=== PATIENT | male | born 1940 | race Caucasian/White ===

== ENCOUNTER 2017-10-12 14:55 | Emergency (ER) | payer MEDICARE, OTHER ==
[~2017-10-12] VITALS: Ht 160 cm; Wt 62.3 kg
[~2017-10-12 14:55] MED LIST: AMLO5TAB4 PO; ASPI-621 PO; CALC0.25 PO; CARV3.122 PO; CARV6.2512 PO; CHOL200074 PO; FOLI400T3 PO; GLUC1CAP48 PO; IRON PO; ROSU40TA PO; SOLI5TAB2 PO; TROS60CA3 PO
[2017-10-12 15:52] VITALS: BP 128/50
[2017-10-12] MEDS ORDERED: SODIUM CHLORIDE FLUSH 10ML SYR IVF ONE (16:00)
[2017-10-12] MEDS ORDERED: ONDANSETRON 2MG/ML, 2ML IVPush ONE (16:00)
[2017-10-12] MEDS ORDERED: SODIUM CHLORIDE 0.9% 1,000ML IVBOLUS ONE (16:00)
[2017-10-12] MEDS ORDERED: MORPHINE SULFATE 4 MG/ML, 1ML IVPush PRN (16:00)
[2017-10-12] MEDS ORDERED: MORPHINE SULFATE 4 MG/ML, 1ML ONE (16:11)
[2017-10-12] MEDS ORDERED: ONDANSETRON 2MG/ML, 2ML ONE (16:11)
[2017-10-12] MEDS ORDERED: KETOROLAC 30 MG/1 ML ONE (16:29)
[2017-10-12] MEDS ORDERED: KETOROLAC 30 MG/1 ML IM ONE (16:30)
[2017-10-12 16:38] LABS: ASPARTATE AMINO TRANSFERASE 16 U/L (15-37); BLOOD UREA NITROGEN 28 mg/dL (7-18)
[2017-10-12 16:49] LABS: DIFF TOTAL CELLS COUNTED 100 CELL DIFF; HEMATOCRIT 31.5 % (39.2-51.8); HEMOGLOBIN 10.5 g/dL (13.7-18.0); WHITE BLOOD COUNT 4.2 x10^3/uL (3.4-10)
[2017-10-12 16:54] LABS: ANISOCYTOSIS 2+; OVALOCYTES 1+; VERIFY COUNTS? YES
[2017-10-12 16:55] LABS: LARGE PLATELETS 1+; MICROCYTOSIS 1+
== END 2017-10-12 17:53 | disposition home or self-care (01) ==
LOC: ED 16:30
DX: M54.6 Pain in thoracic spine (principal); J18.9 Pneumonia, unspecified organism; E78.00 Pure hypercholesterolemia, unspecified; I25.2 Old myocardial infarction; Z90.49 Acquired absence of other specified parts of digestive tract
CPT/HCPCS: 36415; 71010; 73010; 80053; 85025; 96372; 99285; J1885

== ENCOUNTER 2017-12-02 19:30 | Inpatient (IN) | payer MEDICARE, OTHER ==
[~2017-12-02] VITALS: Ht 162.6 cm; Wt 76.6 kg
[2017-12-02] MEDS ORDERED: SODIUM CHLORIDE FLUSH 10ML SYR IVF ONE (20:00)
[2017-12-02] MEDS ORDERED: SODIUM CHLORIDE 0.9% 1,000ML IVBOLUS ONE ×2 (20:00→21:00)
[2017-12-02] MEDS ORDERED: PLEASE ENTER HEIGHT AND WEIGHT MC SCH (20:00)
[2017-12-02 20:38] LABS: RAPID INFLUENZA A Negative (Negative); RAPID INFLUENZA B Negative (Negative)
[2017-12-02 20:39] LABS: INTERNATIONAL NORMALIZED RATIO 1.24 (0.93-1.1); PROTHROMBIN TIME 12.7 Seconds (9.6-11.5)
[2017-12-02 20:41] LABS: ALANINE AMINOTRANSFERASE 75 U/L (12-78); ALBUMIN 2.8 g/dL (3.4-5.0); ANION GAP 15 mmol/L (5-15); CALCIUM 8.2 mg/dL (8.5-10.1); CHLORIDE 107 mmol/L (98-107)
[2017-12-02 20:45] LABS: ALKALINE PHOSPHATASE 141 U/L (45-117); BILIRUBIN,TOTAL 2.7 mg/dL (0.2-1.0)
[2017-12-02 20:48] LABS: MEAN CORPUSCULAR HEMOGLOBIN 31.4 pg (27.5-34.5); MEAN CORPUSCULAR HGB CONC 32.6 g/dL (33.2-36.2); MEAN CORPUSCULAR VOLUME 96.4 fL (81-97); RED BLOOD COUNT 2.44 x10^6/uL (4.38-5.82); RED CELL DISTRIBUTION WIDTH 21.4 % (9.4-14.8)
[2017-12-02] MEDS ORDERED: FUROSEMIDE 40 MG/4 ML IV ONE (21:00)
[2017-12-02] MEDS ORDERED: ASPIRIN 81 MG TABLET CHEW PO ONE (21:00)
[2017-12-02] MEDS ORDERED: CEFTRIAXONE PMX 1GM/50ML 50 ML IV ONE (21:00)
[2017-12-02] MEDS ORDERED: FUROSEMIDE 40 MG/4 ML ONE (21:09)
[2017-12-02 21:17] LABS: MD YES
[2017-12-02] MEDS ORDERED: LORazepam 2 MG/ML, 1ML IVPush ONE (21:30)
[2017-12-02] MEDS ORDERED: CEFTRIAXONE PMX 1GM/50ML 50 ML ONE (21:32)
[2017-12-02 21:33] LABS: BAND#(MANUAL) 2.13 x10^3/uL; BANDS%(MANUAL) 14 % (0-7); LYMPH#(MANUAL) 0.76 x10^3/uL (1-3.4); LYMPHS% (MANUAL) 5 % (22-44); MONOS#(MANUAL) 4.71 x10^3/uL (0.3-2.7); MONOS% (MANUAL) 31 % (2-9); SEG#(MANUAL) 6.38 x10^3/uL (1.8-6.8); SEGS% (MANUAL) 42 % (42-75)
[2017-12-02] MEDS ORDERED: LORazepam 2 MG/ML, 1ML ONE (21:33)
[2017-12-02] MEDS ORDERED: ASPIRIN 81 MG TABLET CHEW ONE (21:33)
[2017-12-02 21:35] LABS: OTHER CELLS # (MANUAL) 1.22 x10^3/uL (0-0); OTHER CELLS % (MANUAL) 8 % (0-0)
[2017-12-02 21:36] LABS: ANISOCYTOSIS 1+; POLYCHROMASIA 1+
[2017-12-02 21:37] LABS: OVALOCYTES 1+
[2017-12-02 21:38] LABS: PLATELET COUNT 52 x10^3/uL (130-400)
[2017-12-02 21:39] LABS: <PLATELET ESTIMATE> DECREASED; LARGE PLATELETS 1+; MEAN PLATELET VOLUME 10.3 fL (7.4-10.4)
[2017-12-02] MEDS ORDERED: FLUMAZENIL 0.1 MG/1 ML, 5ML ONE (21:53)
[2017-12-02] MEDS ORDERED: PANTOPRAZOLE 80 MG in SODIUM CHLORIDE 0.9% 100 ML IV SCH (21:57)
[2017-12-02] MEDS ORDERED: PANTOPRAZOLE 80 MG in SODIUM CHLORIDE 0.9% 50 ML IVPB ONE (21:57)
[2017-12-02] MEDS ORDERED: FLUMAZENIL 0.1 MG/1 ML, 5ML IVPush ONE (22:00)
[2017-12-02 22:05] LABS: MICROSCOPIC INDICATED
[2017-12-02] MEDS ORDERED: SUCCINYLCHOLINE 20 MG/ML, 10ML ONE (22:06)
[2017-12-02] MEDS ORDERED: CODE BLUE RESPONSE XX ONE (22:06)
[2017-12-02] MEDS ORDERED: ETOMIDATE 20 MG/10 ML ONE (22:06)
[2017-12-02] MEDS ORDERED: VECURONIUM 10 MG ONE (22:06)
[2017-12-02] MEDS ORDERED: PROPOFOL 100 ML IV PRN (22:11)
[2017-12-02 22:23] LABS: CULTURE INDICATED? NO
[2017-12-02] MEDS ORDERED: VECURONIUM 10 MG IVPush ONE (22:30)
[2017-12-02] MEDS ORDERED: ETOMIDATE 20 MG/10 ML IV ONE (22:30)
[2017-12-02] MEDS ORDERED: SUCCINYLCHOLINE 20 MG/ML, 10ML IVPush ONE (22:30)
[2017-12-02 22:31] LABS: CLOSTRIDIUM DIFFICILE ANTIGEN NEGATIVE; CLOSTRIDIUM DIFFICILE TOXIN NEGATIVE (Negative)
[2017-12-02 22:32] LABS: MEAN CORPUSCULAR HEMOGLOBIN 32.1 pg (27.5-34.5); MEAN CORPUSCULAR HGB CONC 32.5 g/dL (33.2-36.2); MEAN CORPUSCULAR VOLUME 98.9 fL (81-97); RED BLOOD COUNT 2.09 x10^6/uL (4.38-5.82); RED CELL DISTRIBUTION WIDTH 22.5 % (9.4-14.8)
[2017-12-02 22:37] LABS: ANION GAP 21 mmol/L (5-15); CALCIUM 7.2 mg/dL (8.5-10.1); CHLORIDE 112 mmol/L (98-107); CREATININE 3.01 mg/dL (0.7-1.3)
[2017-12-02 22:43] LABS: MEAN PLATELET VOLUME 10.3 fL (7.4-10.4); PLATELET COUNT 60 x10^3/uL (130-400)
[2017-12-02 22:44] VITALS: BP 88/43
[2017-12-02 22:49] LABS: MD YES
[2017-12-02 22:56] LABS: BAND#(MANUAL) 3.23 x10^3/uL; BANDS%(MANUAL) 11 % (0-7); LYMPH#(MANUAL) 2.35 x10^3/uL (1-3.4); LYMPHS% (MANUAL) 8 % (22-44); METAMYELOCYTES# (MANUAL) 0.29 x10^3/uL (0-0); METAMYELOCYTES% (MANUAL) 1 % (0-1); MONOS#(MANUAL) 3.53 x10^3/uL (0.3-2.7); MONOS% (MANUAL) 12 % (2-9); MYELOCYTES# (MANUAL) 0.29 x10^3/uL (0-0); MYELOCYTES% (MANUAL) 1 % (0-0); NRBC % (MANUAL) 2 % (0-1); OTHER CELLS # (MANUAL) 3.82 x10^3/uL (0-0); OTHER CELLS % (MANUAL) 13 % (0-0); SEG#(MANUAL) 15.88 x10^3/uL (1.8-6.8); SEGS% (MANUAL) 54 % (42-75)
[2017-12-02 22:57] LABS: ANISOCYTOSIS 1+
[2017-12-02 22:58] LABS: <PLATELET ESTIMATE> DECREASED; HYPOCHROMIA 1+; MICROCYTOSIS 1+; OVALOCYTES 1+; POLYCHROMASIA 1+
[2017-12-02 22:59] LABS: LARGE PLATELETS 1+
[2017-12-02] MEDS ORDERED: FLUO10TA PO (22:59)
[2017-12-02] MEDS ORDERED: BISACODYL 10 MG SUPP PR PRN (23:00)
[2017-12-02] MEDS ORDERED: hydrALAzine 20 MG/ML, 1ML IVPush PRN (23:00)
[2017-12-02] MEDS ORDERED: POLYETHYLENE GLYCOL 17 GM PACKET PO PRN (23:00)
[2017-12-02] MEDS ORDERED: DOCUSATE 100 MG CAPSULE PO PRN (23:00)
[2017-12-02] MEDS ORDERED: ONDANSETRON 2MG/ML, 2ML IVPush PRN (23:00)
[2017-12-02] MEDS ORDERED: OXYcodone IR 5MG TABLET PO PRN (23:00)
[2017-12-02] MEDS ORDERED: morphine SULFATE 10 MG/ML, 1ML IVPush PRN (23:00)
[2017-12-02] MEDS ORDERED: PANTOPRAZOLE 80 MG in SODIUM CHLORIDE 0.9% 50 ML IV ONE (23:00)
[2017-12-02 23:01] VITALS: BP 76/30
[2017-12-02 23:30] LABS: FREE T4 (FREE THYROXINE) 0.91 ng/dL (0.76-1.46)
[2017-12-02 23:50] VITALS: BP 75/30
[2017-12-03] VITALS (17 sets, daily range): BP systolic 70–110; BP diastolic 32–44
[2017-12-03] MEDS ORDERED: PROPOFOL 10 MG/ML, 100ML IV ONE
[2017-12-03] MEDS ORDERED: ETOMIDATE 40 MG/20 ML ONE
[2017-12-03] MEDS: CEFTRIAXONE PMX 1GM/50ML 50 ML IV SCH (03:02)
[2017-12-03] MEDS: AZITHROMYCIN 500 MG in SODIUM CHLORIDE 0.9% 250 ML IV SCH (03:56)
[2017-12-03 04:56] LABS: MEAN CORPUSCULAR HEMOGLOBIN 31.2 pg (27.5-34.5); MEAN CORPUSCULAR HGB CONC 33.6 g/dL (33.2-36.2); MEAN CORPUSCULAR VOLUME 92.6 fL (81-97); PLATELET COUNT 66 x10^3/uL (130-400); RED BLOOD COUNT 3.23 x10^6/uL (4.38-5.82); RED CELL DISTRIBUTION WIDTH 19.4 % (9.4-14.8)
[2017-12-03 04:57] LABS: ALBUMIN 2.1 g/dL (3.4-5.0); ANION GAP 18 mmol/L (5-15); CALCIUM 6.6 mg/dL (8.5-10.1); CHLORIDE 113 mmol/L (98-107)
[2017-12-03 05:05] LABS: ALKALINE PHOSPHATASE 157 U/L (45-117); BILIRUBIN,TOTAL 3.1 mg/dL (0.2-1.0); CHOL/HDL RATIO 2.7; CHOLESTEROL, TOTAL 53 mg/dL (140-239); CREATININE 3.31 mg/dL (0.7-1.3); HDL CHOL % 38 % (26-37); HDL CHOLESTEROL (DIRECT) 20 mg/dL (40-60); LDL CHOLESTEROL,CALCULATED 16 mg/dL (54-169); LDL/HDL RATIO 0.8 (0.5-3.0); TOTAL PROTEIN 5.1 g/dL (6.4-8.2); TRIGLYCERIDES 84 mg/dL (50-200); VLDL CHOLESTEROL 17 mg/dL (0-25)
[2017-12-03 05:14] LABS: ALANINE AMINOTRANSFERASE 2721 U/L (12-78)
[2017-12-03 05:40] LABS: MD YES
[2017-12-03 05:43] LABS: BAND#(MANUAL) 8.03 x10^3/uL; BANDS%(MANUAL) 32 % (0-7); LYMPH#(MANUAL) 2.01 x10^3/uL (1-3.4); LYMPHS% (MANUAL) 8 % (22-44); METAMYELOCYTES% (MANUAL) 2 % (0-1); MONOS#(MANUAL) 3.01 x10^3/uL (0.3-2.7); MONOS% (MANUAL) 12 % (2-9); NRBC % (MANUAL) 2 % (0-1); SEG#(MANUAL) 11.55 x10^3/uL (1.8-6.8); SEGS% (MANUAL) 46 % (42-75)
[2017-12-03 05:44] LABS: ANISOCYTOSIS 1+; PMNS WITH VACUOLES 1+; POLYCHROMASIA 1+
[2017-12-03 05:45] LABS: <PLATELET ESTIMATE> DECREASED
[2017-12-03 05:48] LABS: LARGE PLATELETS 1+; MICROCYTOSIS 1+; OVALOCYTES 1+
[2017-12-03] MEDS: SODIUM BICARBONATE 8.4% 150 MEQ in DEXTROSE 5% 1,000 ML IV SCH ×2 (06:00→18:13)
[2017-12-03] MEDS: PANTOPRAZOLE 80 MG in SODIUM CHLORIDE 0.9% 100 ML IV SCH ×2 (11:57→18:13)
[2017-12-03] MEDS: SUCRALFATE 1 GM/10 ML UDC NG SCH ×3 (11:57→20:14)
[2017-12-03] MEDS ORDERED: SODIUM CHLORIDE 0.9%, 500ML IVBOLUS ONE (12:00)
[2017-12-03] MEDS ORDERED: NOREPINEPHRINE 4 MG in SODIUM CHLORIDE 0.9% 246 ML IV PRN (13:00)
[2017-12-03] MEDS: NOREPINEPHRINE 8 MG in SODIUM CHLORIDE 0.9% 242 ML IV PRN (20:11)
[2017-12-03] MEDS ORDERED: PROPOFOL 100 ML IV ONE (20:11)
[2017-12-03] MEDS: PROPOFOL 100 ML IV PRN (20:12)
[2017-12-04] MEDS: CEFTRIAXONE PMX 1GM/50ML 50 ML IV SCH (00:25)
[2017-12-04] MEDS: NOREPINEPHRINE 8 MG in SODIUM CHLORIDE 0.9% 242 ML IV PRN ×3 (03:50→16:12)
[2017-12-04] MEDS: PANTOPRAZOLE 80 MG in SODIUM CHLORIDE 0.9% 100 ML IV SCH ×3 (03:50→23:12)
[2017-12-04] MEDS: AZITHROMYCIN 500 MG in SODIUM CHLORIDE 0.9% 250 ML IV SCH (03:50)
[2017-12-04] MEDS: SODIUM BICARBONATE 8.4% 150 MEQ in DEXTROSE 5% 1,000 ML IV SCH ×2 (04:21→16:12)
[2017-12-04 06:20] VITALS: BP 124/40
[2017-12-04 06:51] LABS: MEAN CORPUSCULAR HEMOGLOBIN 31.3 pg (27.5-34.5); MEAN CORPUSCULAR HGB CONC 34.5 g/dL (33.2-36.2); MEAN CORPUSCULAR VOLUME 90.8 fL (81-97); RED BLOOD COUNT 3.43 x10^6/uL (4.38-5.82); RED CELL DISTRIBUTION WIDTH 19.1 % (9.4-14.8)
[2017-12-04 06:54] LABS: ALBUMIN 1.9 g/dL (3.4-5.0); ANION GAP 16 mmol/L (5-15); CHLORIDE 108 mmol/L (98-107)
[2017-12-04 07:00] LABS: ALKALINE PHOSPHATASE 134 U/L (45-117); BILIRUBIN,TOTAL 2.8 mg/dL (0.2-1.0); CREATININE 4.65 mg/dL (0.7-1.3); TOTAL PROTEIN 4.8 g/dL (6.4-8.2)
[2017-12-04 07:02] LABS: ALANINE AMINOTRANSFERASE 1591 U/L (12-78)
[2017-12-04 07:12] LABS: MEAN PLATELET VOLUME 10.5 fL (7.4-10.4)
[2017-12-04 07:16] LABS: MD YES
[2017-12-04 07:22] LABS: BAND#(MANUAL) 2.24 x10^3/uL; BANDS%(MANUAL) 16 % (0-7); LYMPHS% (MANUAL) 10 % (22-44); MONOS% (MANUAL) 10 % (2-9); NRBC % (MANUAL) 2 % (0-1); SEG#(MANUAL) 8.96 x10^3/uL (1.8-6.8); SEGS% (MANUAL) 64 % (42-75)
[2017-12-04 07:23] LABS: <PLATELET ESTIMATE> DECREASED; ANISOCYTOSIS 1+; MICROCYTOSIS 1+; OVALOCYTES 1+; POLYCHROMASIA 1+
[2017-12-04 07:27] LABS: PLATELET COUNT 19 x10^3/uL (130-400)
[2017-12-04] MEDS: SUCRALFATE 1 GM/10 ML UDC NG SCH ×4 (08:44→20:09)
[2017-12-04] MEDS ORDERED: CALCIUM GLUCONATE 9.2 MEQ in SODIUM CHLORIDE 0.9% 100 ML IV ONE (09:00)
[2017-12-04] MEDS: PROPOFOL 100 ML IV PRN (13:52)
[2017-12-04 14:55] LABS: ABSOLUTE RETICS # 0.06 x10^6/uL (0.5-1.5); RED BLOOD COUNT 3.06 x10^6/uL (4.38-5.82); RETICULOCYTE COUNT % 1.97 % (0.5-1.5)
[2017-12-04 15:05] LABS: CALCIUM 5.8 mg/dL (8.5-10.1)
[2017-12-04] MEDS ORDERED: CALCIUM CHLORIDE 13.6 MEQ in SODIUM CHLORIDE 0.9% 100 ML IV ONE (19:30)
[2017-12-04] MEDS ORDERED: FENTANYL PF 100 MCG/2ML ONE (20:05)
[2017-12-04] MEDS: FENTANYL PF 100 MCG/2ML IVPush PRN (20:09)
[2017-12-05] MEDS: CEFTRIAXONE PMX 1GM/50ML 50 ML IV SCH (00:32)
[2017-12-05] MEDS: FENTANYL PF 100 MCG/2ML IVPush PRN ×3 (01:00→10:35)
[2017-12-05] MEDS: PROPOFOL 100 ML IV PRN ×2 (02:50→19:58)
[2017-12-05] MEDS: SODIUM BICARBONATE 8.4% 150 MEQ in DEXTROSE 5% 1,000 ML IV SCH (03:49)
[2017-12-05] MEDS: NOREPINEPHRINE 8 MG in SODIUM CHLORIDE 0.9% 242 ML IV PRN ×3 (03:49→23:59)
[2017-12-05] MEDS: AZITHROMYCIN 500 MG in SODIUM CHLORIDE 0.9% 250 ML IV SCH (03:49)
[2017-12-05 04:37] LABS: MEAN CORPUSCULAR HEMOGLOBIN 31.1 pg (27.5-34.5); MEAN CORPUSCULAR HGB CONC 34.1 g/dL (33.2-36.2); MEAN CORPUSCULAR VOLUME 91.2 fL (81-97); RED BLOOD COUNT 2.86 x10^6/uL (4.38-5.82); RED CELL DISTRIBUTION WIDTH 18.5 % (9.4-14.8)
[2017-12-05] MEDS ORDERED: SODIUM CHLORIDE INHALATION 7%, 4 ML NPPB STA (04:39)
[2017-12-05 04:43] LABS: ALANINE AMINOTRANSFERASE 935 U/L (12-78); ALBUMIN 1.7 g/dL (3.4-5.0); ANION GAP 13 mmol/L (5-15); CALCIUM 6.4 mg/dL (8.5-10.1); CHLORIDE 105 mmol/L (98-107); CREATININE 5.32 mg/dL (0.7-1.3)
[2017-12-05 04:45] LABS: ALKALINE PHOSPHATASE 116 U/L (45-117); BILIRUBIN,TOTAL 3.8 mg/dL (0.2-1.0); TOTAL PROTEIN 4.4 g/dL (6.4-8.2)
[2017-12-05 05:42] LABS: MD YES; MEAN PLATELET VOLUME 10.8 fL (7.4-10.4)
[2017-12-05 05:44] LABS: PLATELET COUNT 13 x10^3/uL (130-400)
[2017-12-05 05:47] LABS: BAND#(MANUAL) 4.24 x10^3/uL; BANDS%(MANUAL) 27 % (0-7); LYMPH#(MANUAL) 0.47 x10^3/uL (1-3.4); LYMPHS% (MANUAL) 3 % (22-44); MONOS#(MANUAL) 1.41 x10^3/uL (0.3-2.7); MONOS% (MANUAL) 9 % (2-9); NRBC % (MANUAL) 1 % (0-1); SEG#(MANUAL) 9.58 x10^3/uL (1.8-6.8); SEGS% (MANUAL) 61 % (42-75)
[2017-12-05 05:48] LABS: ANISOCYTOSIS 1+; OVALOCYTES 1+
[2017-12-05 05:49] LABS: MICROCYTOSIS 1+; POLYCHROMASIA 1+
[2017-12-05 05:51] LABS: <PLATELET ESTIMATE> DECREASED; LARGE PLATELETS 1+
[2017-12-05] MEDS ORDERED: POLYETHYLENE GLYCOL 17 GM PACKET NG PRN (06:00)
[2017-12-05 08:33] VITALS: BP 134/47
[2017-12-05 08:42] VITALS: BP 134/47
[2017-12-05 08:50] VITALS: BP 124/40
[2017-12-05] MEDS: PANTOPRAZOLE 80 MG in SODIUM CHLORIDE 0.9% 100 ML IV SCH ×2 (08:58→17:46)
[2017-12-05] MEDS: SUCRALFATE 1 GM/10 ML UDC NG SCH ×4 (08:58→20:39)
[2017-12-05] MEDS ORDERED: CALCIUM CHLORIDE 13.6 MEQ in SODIUM CHLORIDE 0.9% 100 ML IV ONE (09:00)
[2017-12-05 10:03] VITALS: BP 108/52
[2017-12-05 10:12] VITALS: BP 108/52
[2017-12-05] MEDS: MEROPENEM 1 GM in SODIUM CHLORIDE 0.9% 100 ML IV SCH (13:10)
[2017-12-05] MEDS ORDERED: ACETAMINOPHEN 650 MG/20.3 ML UDC ONE (19:36)
[2017-12-05] MEDS: ACETAMINOPHEN 650 MG/20.3 ML UDC PO PRN (19:58)
[2017-12-06] MEDS: PANTOPRAZOLE 80 MG in SODIUM CHLORIDE 0.9% 100 ML IV SCH ×3 (02:07→19:48)
[2017-12-06 04:34] LABS: MEAN CORPUSCULAR HEMOGLOBIN 31.5 pg (27.5-34.5); MEAN CORPUSCULAR HGB CONC 34.3 g/dL (33.2-36.2); MEAN CORPUSCULAR VOLUME 91.6 fL (81-97); MEAN PLATELET VOLUME 10.1 fL (7.4-10.4); RED BLOOD COUNT 2.69 x10^6/uL (4.38-5.82); RED CELL DISTRIBUTION WIDTH 19.4 % (9.4-14.8)
[2017-12-06 04:36] LABS: PLATELET COUNT 16 x10^3/uL (130-400)
[2017-12-06 04:41] LABS: ALANINE AMINOTRANSFERASE 525 U/L (12-78); ALBUMIN 1.7 g/dL (3.4-5.0); ANION GAP 14 mmol/L (5-15); CALCIUM 7.5 mg/dL (8.5-10.1); CHLORIDE 106 mmol/L (98-107)
[2017-12-06 04:44] LABS: ALKALINE PHOSPHATASE 109 U/L (45-117); TOTAL PROTEIN 4.7 g/dL (6.4-8.2)
[2017-12-06 05:38] LABS: MD YES
[2017-12-06 05:42] LABS: BAND#(MANUAL) 4.71 x10^3/uL; BANDS%(MANUAL) 26 % (0-7); LYMPH#(MANUAL) 0.54 x10^3/uL (1-3.4); LYMPHS% (MANUAL) 3 % (22-44); MONOS#(MANUAL) 2.17 x10^3/uL (0.3-2.7); MONOS% (MANUAL) 12 % (2-9); NRBC % (MANUAL) 1 % (0-1); OVALOCYTES 1+; SEG#(MANUAL) 10.68 x10^3/uL (1.8-6.8); SEGS% (MANUAL) 59 % (42-75)
[2017-12-06 05:43] LABS: ANISOCYTOSIS 1+; MICROCYTOSIS 1+; POLYCHROMASIA 1+
[2017-12-06 05:44] LABS: <PLATELET ESTIMATE> DECREASED; LARGE PLATELETS 1+
[2017-12-06] MEDS: NOREPINEPHRINE 8 MG in SODIUM CHLORIDE 0.9% 242 ML IV PRN ×3 (05:52→23:35)
[2017-12-06] MEDS: SUCRALFATE 1 GM/10 ML UDC NG SCH ×4 (06:29→21:59)
[2017-12-06] MEDS: ACETAMINOPHEN 650 MG/20.3 ML UDC PO PRN (12:02)
[2017-12-06] MEDS: MEROPENEM 1 GM in SODIUM CHLORIDE 0.9% 100 ML IV SCH (13:24)
[2017-12-06] MEDS: FENTANYL PF 100 MCG/2ML IVPush PRN (13:25)
[2017-12-06] MEDS: PROPOFOL 100 ML IV PRN (16:48)
[2017-12-06] MEDS ORDERED: D5%-0.9% NACL 1,000 ML IV SCH (19:30)
[2017-12-07] MEDS ORDERED: MEROPENEM 500 MG in SODIUM CHLORIDE 0.9% 100 ML IV SCH (01:00)
[2017-12-07] MEDS: PROPOFOL 100 ML IV PRN (01:27)
[2017-12-07] MEDS: ACETAMINOPHEN 650 MG/20.3 ML UDC PO PRN (01:59)
[2017-12-07 03:35] LABS: ALANINE AMINOTRANSFERASE 256 U/L (12-78); ALBUMIN 1.5 g/dL (3.4-5.0); ANION GAP 11 mmol/L (5-15); CALCIUM 6.9 mg/dL (8.5-10.1); CHLORIDE 107 mmol/L (98-107); CREATININE 3.84 mg/dL (0.7-1.3)
[2017-12-07 03:36] LABS: MEAN CORPUSCULAR HEMOGLOBIN 31.2 pg (27.5-34.5); MEAN CORPUSCULAR HGB CONC 33.8 g/dL (33.2-36.2); MEAN CORPUSCULAR VOLUME 92.3 fL (81-97); MEAN PLATELET VOLUME 8.8 fL (7.4-10.4); RED BLOOD COUNT 2.58 x10^6/uL (4.38-5.82); RED CELL DISTRIBUTION WIDTH 19.2 % (9.4-14.8)
[2017-12-07 03:37] LABS: ALKALINE PHOSPHATASE 82 U/L (45-117); PLATELET COUNT 6 x10^3/uL (130-400); TOTAL PROTEIN 4.2 g/dL (6.4-8.2)
[2017-12-07 03:41] LABS: MD YES
[2017-12-07 03:48] LABS: BAND#(MANUAL) 4.42 x10^3/uL; BANDS%(MANUAL) 32 % (0-7); LYMPH#(MANUAL) 1.52 x10^3/uL (1-3.4); LYMPHS% (MANUAL) 11 % (22-44); MONOS#(MANUAL) 1.93 x10^3/uL (0.3-2.7); MONOS% (MANUAL) 14 % (2-9); SEG#(MANUAL) 5.93 x10^3/uL (1.8-6.8); SEGS% (MANUAL) 43 % (42-75)
[2017-12-07 03:49] LABS: <PLATELET ESTIMATE> DECREASED; <PLT MORPHOLOGY> QNS FOR PLT MORPH; ANISOCYTOSIS 1+; MICROCYTOSIS 1+; OVALOCYTES 1+; POLYCHROMASIA 1+
[2017-12-07] MEDS: PANTOPRAZOLE 80 MG in SODIUM CHLORIDE 0.9% 100 ML IV SCH (05:30)
[2017-12-07] MEDS: NOREPINEPHRINE 8 MG in SODIUM CHLORIDE 0.9% 242 ML IV PRN (05:30)
[2017-12-07] MEDS: SUCRALFATE 1 GM/10 ML UDC NG SCH ×2 (08:38→11:00)
[2017-12-07] MEDS: FENTANYL PF 100 MCG/2ML IVPush PRN (10:21)
[2017-12-07] MEDS ORDERED: NOREPINEPHRINE 1 MG/ML, 4ML ONE (11:31)
[2017-12-07] MEDS ORDERED: HYDROmorphone 2 MG/ML, 1ML ONE (12:10)
[2017-12-07] MEDS ORDERED: LORazepam 2 MG/ML, 1ML ONE (12:10)
[2017-12-07] MEDS ORDERED: ATROPINE OPHTH SOLN 1%, 2ML PO PRN (13:00)
[2017-12-07] MEDS ORDERED: LORazepam 2 MG/ML, 1ML IV PRN (13:00)
[2017-12-07] MEDS ORDERED: HYDROmorphone 1 MG/ML, 1ML IV PRN (13:00)
[2017-12-07] MEDS ORDERED: LORazepam 2 MG/ML, 1ML IV ONE (13:00)
== END 2017-12-07 15:58 | disposition expired | DRG 870 ==
LOC: ED 21:17 → EDIP 21:22 → CCU 12-03 00:11
PROVIDERS: ADMIT Internal Medicine; ATTEND Internal Medicine
PROC: 5A1955Z Respiratory Ventilation, Greater than 96 Consecutive Hours (ICD-10-PCS; principal; 2017-12-02)
PROC: 0BH17EZ Insertion of Endotracheal Airway into Trachea, Via Natural or Artificial Opening (ICD-10-PCS; 2017-12-02)
PROC: 30233N1 Transfusion of Nonautologous Red Blood Cells into Peripheral Vein, Percutaneous Approach (ICD-10-PCS; 2017-12-02)
PROC: 5A12012 Performance of Cardiac Output, Single, Manual (ICD-10-PCS; 2017-12-02)
PROC: 02HV33Z Insertion of Infusion Device into Superior Vena Cava, Percutaneous Approach (ICD-10-PCS; 2017-12-03)
PROC: B548ZZA Ultrasonography of Superior Vena Cava, Guidance (ICD-10-PCS; 2017-12-03)
PROC: 30233R1 Transfusion of Nonautologous Platelets into Peripheral Vein, Percutaneous Approach (ICD-10-PCS; 2017-12-03)
PROC: 02HV33Z Insertion of Infusion Device into Superior Vena Cava, Percutaneous Approach (ICD-10-PCS; 2017-12-04)
PROC: B548ZZA Ultrasonography of Superior Vena Cava, Guidance (ICD-10-PCS; 2017-12-04)
PROC: 5A1D70Z Performance of Urinary Filtration, Intermittent, Less than 6 Hours Per Day (ICD-10-PCS; 2017-12-05)
PROC: 5A1D70Z Performance of Urinary Filtration, Intermittent, Less than 6 Hours Per Day (ICD-10-PCS; 2017-12-06)
DX: A41.9 Sepsis, unspecified organism (principal); J96.01 Acute respiratory failure with hypoxia; I21.4 Non-ST elevation (NSTEMI) myocardial infarction; I46.9 Cardiac arrest, cause unspecified; K72.00 Acute and subacute hepatic failure without coma; E43 Unspecified severe protein-calorie malnutrition; J15.9 Unspecified bacterial pneumonia; G92 Toxic encephalopathy; R65.21 Severe sepsis with septic shock; R57.8 Other shock; Z99.11 Dependence on respirator [ventilator] status; I50.23 Acute on chronic systolic (congestive) heart failure; E87.2 Acidosis; D62 Acute posthemorrhagic anemia; N17.9 Acute kidney failure, unspecified; I13.0 Hypertensive heart and chronic kidney disease with heart failure and stage 1 through stage 4 chronic kidney disease, or unspecified chronic kidney disease; C18.9 Malignant neoplasm of colon, unspecified; K92.1 Melena; D63.1 Anemia in chronic kidney disease; E78.5 Hyperlipidemia, unspecified; Z68.29 Body mass index [BMI] 29.0-29.9, adult; E78.00 Pure hypercholesterolemia, unspecified; I05.0 Rheumatic mitral stenosis; I25.10 Atherosclerotic heart disease of native coronary artery without angina pectoris; I45.10 Unspecified right bundle-branch block; R31.0 Gross hematuria; N18.3 Chronic kidney disease, stage 3 (moderate); E86.0 Dehydration; F17.200 Nicotine dependence, unspecified, uncomplicated; T42.4X5A Adverse effect of benzodiazepines, initial encounter; Z51.5 Encounter for palliative care; I25.2 Old myocardial infarction; Z90.49 Acquired absence of other specified parts of digestive tract; Z95.1 Presence of aortocoronary bypass graft; Z95.3 Presence of xenogenic heart valve; Z95.5 Presence of coronary angioplasty implant and graft; Z99.2 Dependence on renal dialysis; Z79.82 Long term (current) use of aspirin; Z82.49 Family history of ischemic heart disease and other diseases of the circulatory system; Z83.3 Family history of diabetes mellitus
CPT/HCPCS: 31500; 36415; 36430; 36556; 36569; 36600; 51702; 71045; 76700; 76937; 77001; 80048; 80053; 80061; 81001; 82306; 82310; 82330; 82533; 82728; 82803; 82962; 83036; 83540; 83550; 83605; 83735; 83880; 83970; 84100; 84439; 84443; 84484; 85014; 85018; 85025; 85045; 85610; 85730; 86705; 86706; 86850; 86900; 86923; 87040; 87070; 87081; 87205; 87324; 87340; 87400; 93005; 93306; 94002; 94003; 96361; 96374; 96375; 99291; J0456; J0610; J0696; J1170; J1940; J2185; J2704; J3010; J7042; J7070; C1751; C9113; J0330; J1642; J2060; J7030; J7040; J7050; P9016; P9035